=== PATIENT | male | born 2000 | race Caucasian/White ===

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

== ENCOUNTER → 2023-04-18 | Outpatient (CLI) | payer OTHER ==
--- NOTE | 2023-04-19 07:53 | US ---
EXAMINATION TYPE: US thyroid st tissue head/neck DATE OF EXAM: 04/18/2023 COMPARISON: NONE CLINICAL INDICATION: Male, 22 years old with history of R22.1 NECK NODULE; Lump right submandibular a jeffrey x 2 years; patient denies any other signs or symptoms or relevant history TECHNIQUE: FINDINGS: Multiple lymph nodes seen at patients area of concern, largest = 2.4 x 1.0 x 2.5 cm IMPRESSION: Mildly prominent lymph nodes noted. These may be reactive in nature. Clinical correlatio n and appropriate follow-up advised.
== END | disposition home or self-care (01) ==
LOC: RADUSWWP 16:25
PROVIDERS: ATTEND Internal Medicine
DX: R22.1 Localized swelling, mass and lump, neck (principal)
CPT/HCPCS: 76536

== ENCOUNTER 2024-02-20 05:11 | Emergency (ER) | payer OTHER ==
[2024-02-20 05:16] VITALS: RESP 18; TEMP 97.8
--- NOTE | 2024-02-20 05:49 | ED ---
General Adult HPI - General Chief complaint: Extremity Problem,Nontraumatic Stated complaint: RT wrist pain Time Seen by Provider: 02/20/24 05:11 Source: patient, RN notes reviewed, old records reviewed Mode of arrival: ambulatory - History of Present Illness Initial comments: Patient is a 23-year-old male who presents to the emergency department with atraumatic right wrist pain. Patient states he has no known trauma but states maybe when he was sleeping he struck his wrist on his child's crib which is next to his bed. States it is tender over the bony prominence of the posterior distal ulna on the right wrist. Denies any sensory deficits. Has normal range of motion but does have pain with it. No obvious injuries. Presents for further evaluation at this time. Pain has been present for over a day. - Related Data Previous Rx's Medication Instructions Recorded Famotidine [Pepcid] 20 mg PO BID #20 tablet 01/19/18 Omeprazole [PriLOSEC] 20 mg PO AC-BRKFST #14 cap 01/20/18 Azithromycin [Zithromax Z Pack] 250 mg PO DAILY #6 tab 10/12/22 Allergies Allergy/AdvReac Type Severity Reaction Status Date / Time amoxicillin Allergy Swelling Verified 02/20/24 05:15 cephalexin monohydrate Allergy Rash/Hives Verified 02/20/24 05:15 [From Keflex] latex Allergy Unknown Verified 02/20/24 05:15 Review of Systems ROS Statement: Those systems with pertinent positive or pertinent negative responses have been documented in the HPI. Review of Systems: CONST: Denies fever EYES: Denies blurry vision ENT: Denies nasal congestion C/V: Denies Chest pain RESP: Denies shortness of breath GI: Denies abdominal pain : Denies dysuria SKIN: Denies rash. MSK: Endorses right wrist pain NEURO: Denies headache ROS Other: All systems not noted in ROS Statement are negative. Past Medical History Past Medical History: Asthma, GERD/Reflux History of Any Multi-Drug Resistant Organisms: MRSA Date of last positivie culture/infection: 2008 MDRO Source:: leg Past Surgical History: Adenoidectomy, Ear Surgery, Tonsillectomy Additional Past Surgical History / Comment(s): tubes in ears Past Psychological History: ADD/ADHD, Anxiety Smoking Status: Never smoker Past Alcohol Use History: None Reported Past Drug Use History: Marijuana General Exam - General Exam Comments Initial Comments: General: Appears in no acute distress. HEAD: Normal with no signs of head trauma. EYES: EOMI. ENT: Hearing grossly intact. RESPIRATORY: No respiratory distress. C/V: Regular rate and rhythm. ABD: Abdomen is nondistended. EXT: No obvious deformity. Normal range of motion of the right wrist. Tenderness to palpation over the bony prominence of the distal posterior ulna. No anatomical snuffbox tenderness to palpation. Neurovascular intact in distal right upper extremity. SKIN: No rashes or lesions observed on exposed skin. NEURO: Alert and oriented. Course Vital Signs 02/20/24 05:14 Temperature 97.8 F Pulse Rate 66 Respiratory 18 Rate Blood Pressure 125/64 O2 Sat by Pulse 99 Oximetry Medical Decision Making - Medical Decision Making Was pt. sent in by a medical professional or institution (ELISA Garcia, END MAKER, urgent care, hospital, or alf...) When possible be specific @ -No Did you speak to anyone other than the patient for history (EMS, parent, family, police, friend...)? What history was obtained from this source @ -No Did you review nursing and triage notes (agree or disagree)? Why? @ -I reviewed and agree with nursing and triage notes Were old charts reviewed (outside hosp., previous admission, EMS record, old EKG, old radiological studies, urgent care reports/EKG's, alf records)? Report findings @ -No old charts were reviewed Differential Diagnosis (chest pain, altered mental status, abdominal pain women, abdominal pain men, vaginal bleeding, weakness, fever, dyspnea, syncope, headache, dizziness, GI bleed, back pain, seizure, CVA, palpatations, mental he alth, musculoskeletal)? @ -Differential Musculoskeletal Muscular strain, contusion, ligament sprain, fracture, arthritis, septic arthritis, bursitis, cellulitis, muscle spasm, nerve compression, DVT, arterial occlusion, herpes zoster, electrolyte abnormality, tumor.... This is not meant to be in all inclusive list EKG interpreted by me (3pts min.). @ -None done X-rays interpreted by me (1pt min.). @ -Right wrist x-ray reveals no obvious acute fracture or injury. CT interpreted by me (1pt min.). @ -None done U/S interpreted by me (1pt. min.). @ -None done What testing was considered but not performed or refused? (CT, X-rays, U/S, labs)? Why? @ -None What meds were considered but not given or refused? Why? @ -I offered analgesia medications which were declined by the patient. Did you discuss the management of the patient with other professionals (professionals i.e. , PA, END MAKER, lab, RT, psych nurse, manager social work, orthotics technician, teacher, chief analytics officer, foster care case manager)? Give summary @ -No Was smoking cessation discussed for >3mins.? @ -No Was critical care preformed (if so, how long)? @ -No Were there social determinants of health that impacted care today? How? (Homelessness, low income, unemployed, alcoholism, drug addiction, transportation, low edu. Level, literacy, decrease access to med. care, skilled nursing, rehab)? @ -No Was there de-escalation of care discussed even if they declined (Discuss DNR or withdrawal of care, Hospice)? DNR status @ -No What co-morbidities impacted this encounter? (DM, HTN, Smoking, COPD, CAD, Cancer, CVA, ARF, Chemo, Hep., AIDS, mental health diagnosis, sleep apnea, morbid obesity)? @ -None Was patient admitted / discharged? Hospital course, mention meds given and route, prescriptions, significant lab abnormalities, going to OR and other pertinent info. @ -Based on the patient's presentation and physical exam, presents emergency department with atraumatic right wrist pain. We will obtain an x-ray. Vital signs and exam otherwise within acceptable limits. Patient declines analgesia medications. He was in agreement this plan. No anatomical snuffbox tenderness of the right wrist. X-ray returned showing no obvious acute fracture or injury. I updated the patient. He already has a Velcro splint that he has been using and I recommended he continue to use that. Recommended ice, rest, as well as [id number] analgesia medications for pain control. Recommended follow-up with his PCP if symptoms persist. He was in agreement this plan. I instructed the patient to follow up with their PCP in the next 1-3 days. I provided contact information for follow up with orthopedics. I explained that the patient should return to the emergency department if they experience any worsening symptoms. Strict return precautions were discussed with the patient. The patient expressed understanding of these instructions. I answered all questions that the patient had. The patient was discharged home in good condition with their prescriptions and follow up information. Undiagnosed new problem with uncertain prognosis? @ -No Drug Therapy requiring intensive monitoring for toxicity (Heparin, Nitro, Insulin, Cardizem)? @ -No Were any procedures done? @ -No Diagnosis/symptom? @ -Right wrist sprain Acute, or Chronic, or Acute on Chronic? @ -Acute Uncomplicated (without systemic symptoms) or Complicated (systemic symptoms)? @ -Uncomplicated Side effects of treatment? @ -No Exacerbation, Progression, or Severe Exacerbation? @ -No Poses a threat to life or bodily function? How? (Chest pain, USA, IA, pneumonia, PE, COPD, DKA, ARF, appy, cholecystitis, CVA, Diverticulitis, Homicidal, Suicidal, threat to staff... and all critical care pts) @ -No Disposition Clinical Impression: Right wrist sprain Disposition: HOME SELF-CARE Condition: Good Instructions (If sedation given, give patient instructions): Wrist Sprain (ED) Additional Instructions: Follow-up with your PCP if symptoms persist. Return to the emergency department if any worsening symptoms. Continues to use your Velcro splint at home. Use [id number] pain medications as needed.Follow-up with orthopedic surgery if symptoms persist. You may require repeat x-ray. Is patient prescribed a controlled substance at d/c from ED?: No Referrals: Robert Novoa DO [Primary Care Provider] - 1-2 days Jose Alfredo Montejo MD [STAFF PHYSICIAN] - 1-2 days Time of Disposition: 06:15
--- NOTE | 2024-02-20 06:03 | XR ---
EXAM: XR Right Wrist Complete, 3 or More Views CLINICAL HISTORY: ITS.REASON XR Reason: pain TECHNIQUE: Frontal, lateral and oblique views of the right wrist. COMPARISON: No relevant prior studies available. FINDINGS: Bones/joints: Unremarkable. No acute fracture. No dislocation. Soft tissues: Unremarkable. No radiopaque foreign body. IMPRESSION: Normal right wrist x-rays.
[2024-02-20 06:27] VITALS: BP 107/70; PULSE 72
== END 2024-02-20 06:27 | disposition home or self-care (01) ==
LOC: EC 05:11
DX: S63.501A Unspecified sprain of right wrist, initial encounter (principal); Z88.0 Allergy status to penicillin; Z88.1 Allergy status to other antibiotic agents; Z91.040 Latex allergy status; W10.1XXA Fall (on)(from) sidewalk curb, initial encounter
CPT/HCPCS: 99283